=== PATIENT | female | born 1950 | race Caucasian/White ===

== ENCOUNTER 2017-10-08 12:54 | Day surgery (SDC) | payer OTHER ==
[~2017-10-08] VITALS: Ht 157.5 cm; Wt 98.0 kg
[~2017-10-08 12:54] MED LIST: ASPIRIN81 M2 PO; CARVEDILOL12.5 MG PO; COLCHICINE0.6 M1 PO; COZAAR100 MG PO; FISH OIL 1,2001 EAC4 PO; HYDROCHLOROTH12.5 M3 PO; IMDUR30 MG PO; OMEPRAZOLE40 M1 PO; SYNTHROID125 MCG PO; TYLENOL EXTRA500 MG PO; VITAMIN B-121000 MC3 PO; VITAMIN D5000 UNI1 PO
== END 2017-10-08 20:05 | disposition home or self-care (01) ==
LOC: CATH 12:54 → ENRESERV 14:38 → 2SOUTH 14:39 → CANRESERV 18:22 → ENRESERV 18:22 → 2SOUTH 20:05
DX: R07.89 Other chest pain (principal); R06.02 Shortness of breath; R06.09 Other forms of dyspnea; Z85.850 Personal history of malignant neoplasm of thyroid; I11.9 Hypertensive heart disease without heart failure; E11.9 Type 2 diabetes mellitus without complications; E66.01 Morbid (severe) obesity due to excess calories; Z68.39 Body mass index [BMI] 39.0-39.9, adult; E78.5 Hyperlipidemia, unspecified; G47.33 Obstructive sleep apnea (adult) (pediatric); Z79.82 Long term (current) use of aspirin; Z87.891 Personal history of nicotine dependence
CPT/HCPCS: 71045; 78582; 93005; A9539; A9540; C1769; C1887; G0378; J1644; J2250; J7040